=== PATIENT | male | born 1960 | race African-American/Black ===

== ENCOUNTER → 2019-04-20 | Outpatient (CLI) | payer MEDICARE | LOC: NM 11:01 | PROVIDERS: ATTEND Internal Medicine Interventional Cardiology | DX: R07.9 Chest pain, unspecified (principal); I20.9 Angina pectoris, unspecified; I25.10 Atherosclerotic heart disease of native coronary artery without angina pectoris; Z82.49 Family history of ischemic heart disease and other diseases of the circulatory system | CPT/HCPCS: 78452; 93017; A9502 ==